=== PATIENT | male | born 1990 | race Caucasian/White ===

== ENCOUNTER 2019-02-09 16:20 | Emergency (ER) | payer OTHER ==
[~2019-02-09] VITALS: Ht 170.2 cm; Wt 56.0 kg
[2019-02-09 16:28] VITALS: BP 136/91; Ht 170.2 cm; Wt 56.0 kg
== END 2019-02-09 18:20 | disposition home or self-care (01) ==
LOC: ED 16:20
DX: L04.0 Acute lymphadenitis of face, head and neck (principal)

== ENCOUNTER 2019-07-07 13:30 | Emergency (ER) | payer OTHER ==
[~2019-07-07] VITALS: Ht 170.2 cm; Wt 54.4 kg
[2019-07-07 13:50] VITALS: Ht 170.2 cm; Wt 54.4 kg
[2019-07-07 18:00] VITALS: BP 128/83
== END 2019-07-07 17:58 | disposition home or self-care (01) ==
LOC: ED 13:30
DX: F10.129 Alcohol abuse with intoxication, unspecified (principal); F20.9 Schizophrenia, unspecified
CPT/HCPCS: 36415

== ENCOUNTER 2019-11-10 20:57 | Inpatient (IN) | payer OTHER ==
[~2019-11-10] VITALS: Ht 160 cm; Wt 46.8 kg
[2019-11-10 21:35] VITALS: Ht 160 cm; Wt 46.8 kg
[2019-11-11 06:19] LABS: CALCIUM 7.5 mg/dL (8.5-10.1); CARBON DIOXIDE 25.2 mmol/L (21-32); CHLORIDE SERUM 111 mmol/L (98-107); CREATININE SERUM 0.5 mg/dL (0.7-1.3); GFR1 > 60 mL/min; GLUCOSE SERUM 113 mg/dL (74-106); POTASSIUM SERUM 3.3 mmol/L (3.5-5.1); SODIUM SERUM 147 mmol/L (136-145)
[2019-11-11 06:24] LABS: ALBUMIN 3.5 g/dL (3.4-5.0); ALKALINE PHOSPHATASE 95 U/L (46-116); ALT/SGPT 20 U/L (16-63); AST/SGOT 13 U/L (15-37); BILIRUBIN TOTAL 0.1 mg/dL (0.20-1.00); TOTAL PROTEIN, SERUM 7.3 g/dL (6.4-8.2)
[2019-11-11 06:34] LABS: PLATELET COUNT 404 x10^3mcL (130-400); RED CELL DISTRIBUTION WIDTH 19.9 % (11.5-14.5)
[2019-11-11] MEDS ORDERED: SEROQUEL300 MG (06:34)
[2019-11-11 07:51] LABS: AMPHETAMINE QUAL UR POSITIVE (See below)
[2019-11-11 07:54] LABS: BAND NEUTROPHIL 0 % (0-10); BASOPHIL 0 % (0-2); MONOCYTE 10 % (0-7); PLATELET MORPHOLOGY PLATELETS INCREASED; SEGMENTED NEUTROPHILS 42 % (37-75); rbc morphology (normal/abnorm) ABNORMAL (NORMAL)
[2019-11-11 11:45] VITALS: BP 133/68
[2019-11-11 13:06] VITALS: BP 133/88
[2019-11-11 17:05] VITALS: BP 139/94
[2019-11-11 21:18] VITALS: BP 138/90
[2019-11-12] VITALS (7 sets, daily range): BP systolic 110–132; BP diastolic 55–86
[2019-11-12 06:39] LABS: ALBUMIN 3.3 g/dL (3.4-5.0); ALKALINE PHOSPHATASE 95 U/L (46-116); ALT/SGPT 19 U/L (16-63); AST/SGOT 16 U/L (15-37); BILIRUBIN TOTAL 0.3 mg/dL (0.20-1.00); CALCIUM 7.8 mg/dL (8.5-10.1); CARBON DIOXIDE 25.9 mmol/L (21-32); CHLORIDE SERUM 104 mmol/L (98-107); CREATININE SERUM 0.6 mg/dL (0.7-1.3); GFR1 > 60 mL/min; GLUCOSE SERUM 78 mg/dL (74-106); LIPASE 83 IU/L (73-393); MAGNESIUM 1.6 mg/dL (1.8-2.4); POTASSIUM SERUM 3.6 mmol/L (3.5-5.1); SODIUM SERUM 139 mmol/L (136-145); TOTAL PROTEIN, SERUM 6.8 g/dL (6.4-8.2)
[2019-11-12 07:09] LABS: PLATELET COUNT 410 x10^3mcL (130-400); RED CELL DISTRIBUTION WIDTH 20.5 % (11.5-14.5)
[2019-11-12 09:48] LABS: MONOCYTE 14 % (0-7)
[2019-11-12 09:49] LABS: SEGMENTED NEUTROPHILS 52 % (37-75); rbc morphology (normal/abnorm) ABNORMAL (NORMAL)
[2019-11-12] MEDS ORDERED: ATI1 PO (13:12)
[2019-11-13 05:25] VITALS: BP 97/60
[2019-11-13 06:48] LABS: ALKALINE PHOSPHATASE 100 U/L (46-116); ALT/SGPT 19 U/L (16-63); AST/SGOT 12 U/L (15-37); BILIRUBIN TOTAL 0.19 mg/dL (0.20-1.00); CALCIUM 8.2 mg/dL (8.5-10.1); CARBON DIOXIDE 27.6 mmol/L (21-32); CHLORIDE SERUM 104 mmol/L (98-107); CREATININE SERUM 0.5 mg/dL (0.7-1.3); GFR1 > 60 mL/min; GLUCOSE SERUM 88 mg/dL (74-106); POTASSIUM SERUM 3.9 mmol/L (3.5-5.1); SODIUM SERUM 137 mmol/L (136-145)
[2019-11-13 06:56] LABS: ALBUMIN 3.3 g/dL (3.4-5.0)
[2019-11-13 07:33] LABS: PLATELET COUNT 425 x10^3mcL (130-400)
[2019-11-13 07:34] LABS: BASOPHIL % 0.7 % (0-2)
[2019-11-13 07:36] LABS: rbc morphology (normal/abnorm) ABNORMAL (NORMAL)
[2019-11-13 07:56] VITALS: BP 119/50
[2019-11-13 12:42] VITALS: BP 122/73
[2019-11-13 15:07] VITALS: BP 122/73
== END 2019-11-13 17:19 | disposition short-term general hospital (02) | DRG 641 ==
LOC: ED 20:57 → MU 11-11 08:41 → DU 11-11 08:41 → MU 11-11 10:46 → DU 11-11 13:00
PROVIDERS: Emergency Medicine; ADMIT Hospitalist
DX: E86.0 Dehydration (principal); G93.49 Other encephalopathy; E87.6 Hypokalemia; F15.10 Other stimulant abuse, uncomplicated; F10.129 Alcohol abuse with intoxication, unspecified; Y90.0 Blood alcohol level of less than 20 mg/100 ml; Z68.20 Body mass index [BMI] 20.0-20.9, adult
CPT/HCPCS: G0378; G0480; J2060; J3480; J3486; J7030; J7040

== ENCOUNTER 2019-12-06 22:45 | Observation (INO) | payer OTHER ==
[~2019-12-06] VITALS: Ht 160 cm; Wt 60.8 kg
[~2019-12-06 22:45] MED LIST: ATI1 PO; SEROQUEL300 MG
[2019-12-06 23:19] LABS: BASOPHIL % 0.3 % (0-2); PLATELET COUNT 316 x10^3mcL (130-400)
[2019-12-06 23:20] LABS: RED CELL DISTRIBUTION WIDTH 21.4 % (11.5-14.5)
[2019-12-06 23:24] LABS: CALCIUM 8.1 mg/dL (8.5-10.1); CARBON DIOXIDE 21.6 mmol/L (21-32); CHLORIDE SERUM 103 mmol/L (98-107); CREATININE SERUM 0.7 mg/dL (0.7-1.3); GFR1 > 60 mL/min; GLUCOSE SERUM 157 mg/dL (74-106); POTASSIUM SERUM 3.4 mmol/L (3.5-5.1); SODIUM SERUM 141 mmol/L (136-145)
[2019-12-06 23:29] LABS: ALBUMIN 3.8 g/dL (3.4-5.0); ALKALINE PHOSPHATASE 75 U/L (46-116); ALT/SGPT 27 U/L (16-63); AST/SGOT 22 U/L (15-37); BILIRUBIN TOTAL 0.2 mg/dL (0.20-1.00); TOTAL PROTEIN, SERUM 7.1 g/dL (6.4-8.2)
[2019-12-06 23:39] LABS: AMPHETAMINE QUAL UR NONE DETECTED (See below)
[2019-12-07] MEDS ORDERED: XANAX0.5 MG PO (00:39)
[2019-12-07 01:17] VITALS: BP 125/74
[2019-12-07 01:24] VITALS: Ht 160 cm; Wt 60.8 kg
[2019-12-07 05:59] VITALS: BP 127/71
== END 2019-12-07 08:45 | disposition left against medical advice (07) ==
LOC: ED 22:45 → DU 23:52
PROVIDERS: Emergency Medicine; ADMIT Internal Medicine Pulmonary Disease
DX: F19.10 Other psychoactive substance abuse, uncomplicated (principal); G93.41 Metabolic encephalopathy; D64.9 Anemia, unspecified; E87.6 Hypokalemia
CPT/HCPCS: 82962; G0378; G0480; J1644; J2310; J7030; Q0092

== ENCOUNTER 2020-01-03 08:52 | Emergency (ER) | payer SELFPAY ==
[~2020-01-03] VITALS: Ht 180.3 cm; Wt 63.5 kg
[~2020-01-03 08:52] MED LIST changes: +XANAX0.5 MG PO
[2020-01-03 08:59] VITALS: Ht 180.3 cm; Wt 63.5 kg
[2020-01-03 09:51] LABS: PLATELET COUNT 405 x10^3mcL (130-400); RED CELL DISTRIBUTION WIDTH 23.5 % (11.5-14.5)
[2020-01-03 09:52] LABS: BASOPHIL % 1.8 % (0-2); CALCIUM 8.2 mg/dL (8.5-10.1); CARBON DIOXIDE 26.3 mmol/L (21-32); CHLORIDE SERUM 105 mmol/L (98-107); CREATININE SERUM 0.5 mg/dL (0.7-1.3); GFR1 > 60 mL/min; GLUCOSE SERUM 99 mg/dL (74-106); POTASSIUM SERUM 3.4 mmol/L (3.5-5.1); SODIUM SERUM 140 mmol/L (136-145)
[2020-01-03 09:53] LABS: rbc morphology (normal/abnorm) ABNORMAL (NORMAL)
[2020-01-03 09:57] LABS: ALBUMIN 3.7 g/dL (3.4-5.0); ALKALINE PHOSPHATASE 80 U/L (46-116); ALT/SGPT 28 U/L (16-63); AST/SGOT 21 U/L (15-37); BILIRUBIN TOTAL 0.16 mg/dL (0.20-1.00); TOTAL PROTEIN, SERUM 6.9 g/dL (6.4-8.2)
[2020-01-03 12:49] LABS: AMPHETAMINE QUAL UR NONE DETECTED (See below)
[2020-01-03 12:54] VITALS: BP 133/76
== END 2020-01-03 14:26 | disposition home or self-care (01) ==
LOC: ED 08:52
PROVIDERS: Emergency Medicine
DX: F10.10 Alcohol abuse, uncomplicated (principal); F19.10 Other psychoactive substance abuse, uncomplicated
CPT/HCPCS: G0480

== ENCOUNTER 2020-01-31 15:28 | Emergency (ER) | payer SELFPAY ==
[~2020-01-31] VITALS: Ht 170.2 cm; Wt 68.0 kg
[2020-01-31 15:35] VITALS: Ht 170.2 cm; Wt 68.0 kg
[2020-01-31 16:05] LABS: CARBON DIOXIDE 25.3 mmol/L (21-32); CHLORIDE SERUM 106 mmol/L (98-107); CREATININE SERUM 0.6 mg/dL (0.7-1.3); GFR1 > 60 mL/min; GLUCOSE SERUM 86 mg/dL (74-106); POTASSIUM SERUM 3.5 mmol/L (3.5-5.1); SODIUM SERUM 146 mmol/L (136-145)
[2020-01-31 16:06] LABS: PLATELET COUNT 425 x10^3mcL (130-400); RED CELL DISTRIBUTION WIDTH 21.5 % (11.5-14.5)
[2020-01-31 16:11] LABS: ALBUMIN 4.6 g/dL (3.4-5.0); ALKALINE PHOSPHATASE 114 U/L (46-116); ALT/SGPT 23 U/L (16-63); AST/SGOT 26 U/L (15-37); BILIRUBIN TOTAL 0.4 mg/dL (0.20-1.00)
[2020-01-31 16:12] LABS: TOTAL PROTEIN, SERUM 8.4 g/dL (6.4-8.2)
[2020-01-31 16:25] LABS: MONOCYTE 12 % (0-7); SEGMENTED NEUTROPHILS 61 % (37-75)
[2020-01-31 16:29] LABS: rbc morphology (normal/abnorm) ABNORMAL (NORMAL)
[2020-01-31 16:30] LABS: PLATELET MORPHOLOGY PLATELETS INCREASED
[2020-01-31 17:56] LABS: microscopic required? NO
[2020-01-31 18:08] LABS: UA SPECIFIC GRAVITY <=1.005 (1.005-1.035); urine erythrocyte NEGATIVE (NEGATIVE)
[2020-01-31 19:09] LABS: AMPHETAMINE QUAL UR NONE DETECTED (See below)
[2020-02-01 07:03] VITALS: BP 133/75
== END 2020-02-01 07:03 | disposition home or self-care (01) ==
LOC: ED 15:28
PROVIDERS: Specialist
DX: F10.129 Alcohol abuse with intoxication, unspecified (principal); R41.82 Altered mental status, unspecified
CPT/HCPCS: 36415; G0480; J1630; J7030

== ENCOUNTER 2020-05-17 21:42 | Emergency (ER) | payer MEDICAID ==
[~2020-05-17] VITALS: Ht 170.2 cm; Wt 59.4 kg
[2020-05-17 21:55] VITALS: Ht 170.2 cm; Wt 59.4 kg
[2020-05-17 23:03] VITALS: BP 129/69
== END 2020-05-17 23:03 | disposition home or self-care (01) ==
LOC: ED 21:42
DX: S42.012A Anterior displaced fracture of sternal end of left clavicle, initial encounter for closed fracture (principal); V19.9XXA Pedal cyclist (driver) (passenger) injured in unspecified traffic accident, initial encounter; Y93.I9 Activity, other involving external motion; Y92.413 State road as the place of occurrence of the external cause; Y99.8 Other external cause status; J45.909 Unspecified asthma, uncomplicated
CPT/HCPCS: Q0092

== ENCOUNTER 2020-05-29 22:39 | Emergency (ER) | payer MEDICAID ==
[~2020-05-29] VITALS: Ht 170.2 cm; Wt 70.3 kg
[2020-05-29 22:55] VITALS: Ht 170.2 cm; Wt 70.3 kg
[2020-05-29 23:18] LABS: BASOPHIL % 0.6 % (0-2); PLATELET COUNT 344 x10^3mcL (130-400)
[2020-05-29 23:33] LABS: rbc morphology (normal/abnorm) ABNORMAL (NORMAL)
[2020-05-29 23:47] LABS: CALCIUM 7.6 mg/dL (8.5-10.1); CARBON DIOXIDE 22.7 mmol/L (21-32); CHLORIDE SERUM 112 mmol/L (98-107); CREATININE SERUM 0.6 mg/dL (0.7-1.3); GFR1 > 60 mL/min; GLUCOSE SERUM 97 mg/dL (74-106); POTASSIUM SERUM 3.5 mmol/L (3.5-5.1); SODIUM SERUM 147 mmol/L (136-145)
[2020-05-29 23:53] LABS: ALBUMIN 3.5 g/dL (3.4-5.0); ALKALINE PHOSPHATASE 74 U/L (46-116); ALT/SGPT 28 U/L (16-63); AST/SGOT 25 U/L (15-37); BILIRUBIN TOTAL 0.3 mg/dL (0.20-1.00); TOTAL PROTEIN, SERUM 6.5 g/dL (6.4-8.2)
[2020-05-29 23:55] LABS: CHOLESTEROL 107 mg/dL (<200)
[2020-05-30 03:40] VITALS: BP 116/75
== END 2020-05-30 03:40 | disposition home or self-care (01) ==
LOC: ED 22:39
PROVIDERS: Emergency Medicine
DX: R41.82 Altered mental status, unspecified (principal); F10.129 Alcohol abuse with intoxication, unspecified; J45.909 Unspecified asthma, uncomplicated; Y90.6 Blood alcohol level of 120-199 mg/100 ml
CPT/HCPCS: G0480

== ENCOUNTER 2020-06-08 16:48 | Emergency (ER) | payer MEDICAID ==
[~2020-06-08] VITALS: Ht 170.2 cm; Wt 54.4 kg
[2020-06-08 16:51] VITALS: BP 128/77; Ht 170.2 cm; Wt 54.4 kg
== END 2020-06-08 17:29 | disposition home or self-care (01) ==
LOC: ED 16:48
DX: J45.909 Unspecified asthma, uncomplicated (principal); Z76.0 Encounter for issue of repeat prescription; Z98.890 Other specified postprocedural states